=== PATIENT | male | born 1935 | race Caucasian/White ===

== ENCOUNTER 2023-05-13 16:54 | Emergency (ER) | payer MEDICARE, OTHER, SELFPAY ==
--- NOTE | ~2023-05-13 | XR_ITS ---
EXAMINATION: XR wrist LT min 3V DATE: 05/13/2023 18:12 INDICATION: Left wrist injury. Fall. TECHNIQUE: 4 views of left wrist were obtained. COMPARISON: None. FINDINGS: Bone alignment is normal. No fracture. There is moderate osteoarthritis of radioscaphoid juan carlos int, severe osteoarthritis of triscaphe joint, first carpometacarpal joint, and second metacarpophala ngeal joint, and mild osteoarthritis of the other metacarpophalangeal joints. 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 Reviewed, dictated and finalized at location E. LY MEDICINE PHYSICIAN ASSISTANT
--- NOTE | ~2023-05-13 | CT_ITS ---
EXAMINATION: CT brain wo con DATE: 05/13/2023 18:03 INDICATION: Head injury. TECHNIQUE: Computed tomography (CT) of the head was performed without intravenous contrast. The mA wa s adjusted according to patient size. Iterative reconstruction technique was employed. The dose-lengt h product was 681.00 mGy-cm. COMPARISON: None FINDINGS: There is no intracranial hemorrhage, acute infarction, or abnormal intracranial mass lesion . The ventricles are normal in size. The orbits are normal. There is mild mucosal thickening in the p aranasal sinuses. There is complete opacification of left frontal sinus with osteopenia of the surrou nding bone, consistent with chronic sinusitis. The mastoid air cells are normal. IMPRESSION: 1. Normal brain. 2. Chronic sinusitis. Reviewed, dictated and finalized at location E. PLANT MANAGER
--- NOTE | ~2023-05-13 | CT_ITS ---
EXAMINATION: CT facial bones wo con DATE: 05/13/2023 18:03 INDICATION: Face injury. TECHNIQUE: Computed tomography (CT) of the facial bones and maxillofacial region was performed withou t intravenous contrast. Automated exposure control and iterative reconstruction technique were employ ed. The dose-length product was 553.09 mGy-cm. COMPARISON: None. FINDINGS: The orbits are normal. There is rightward deviation of the nasal septum. No fracture. There is mild mucosal thickening in the paranasal sinuses. There is complete opacification of left frontal sinus with osteopenia of the surrounding bone, consistent with chronic sinusitis. 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 IMPRESSION: 1. No fracture. 2. Chronic sinusitis. Reviewed, dictated and finalized at location E. LRY COATER
--- NOTE | ~2023-05-13 | XR_ITS ---
EXAMINATION: XR shoulder LT min 2V DATE: 05/13/2023 18:12 INDICATION: Left shoulder pain. TECHNIQUE: 3 views of left shoulder were obtained. COMPARISON: None. FINDINGS: Bone alignment is normal. No fracture. There is moderate osteoarthritis of glenohumeral salazar nt and severe osteoarthritis of acromioclavicular joint. IMPRESSION: 1. Polyarticular osteoarthritis. Reviewed, dictated and finalized at location E. LY OFFICER
--- NOTE | ~2023-05-13 | XR_ITS ---
EXAMINATION: XR wrist RT min 3V DATE: 05/13/2023 18:12 INDICATION: Right wrist pain. Fall. TECHNIQUE: 4 views of right wrist were obtained. COMPARISON: None. FINDINGS: Bone alignment is normal. No fracture. There is moderate osteoarthritis of radioscaphoid juan carlos int, mild osteoarthritis of lunate-capitate joint, and severe osteoarthritis of triscaphe joint and f irst carpometacarpal joint. There is a loose body in the radiocarpal compartment dorsally. 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 Reviewed, dictated and finalized at location E. MOBILE DEALER
[2023-05-13 17:24] VITALS: BP 168/49; PULSE 86; RESP 16; TEMP 36.4; O2SAT 99
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
[2023-05-13] MEDS: TETANUS,DIPHTHERIA,AC PERTUSSIS ADULT (0.5 ML) BOOSTRIX IM (18:39)
[2023-05-13 19:14] VITALS: BP 152/70; PULSE 84; RESP 18; O2SAT 99
== END 2023-05-13 19:15 | disposition home or self-care (01) ==
PROVIDERS: Emergency Provider Physician Assistant
DX: S01.511A Laceration without foreign body of lip, initial encounter (principal); S00.33XA Contusion of nose, initial encounter; Z23 Encounter for immunization; M19.032 Primary osteoarthritis, left wrist; M19.031 Primary osteoarthritis, right wrist; M19.012 Primary osteoarthritis, left shoulder; J32.9 Chronic sinusitis, unspecified; W10.1XXA Fall (on)(from) sidewalk curb, initial encounter
CPT/HCPCS: 12011; 70450; 70486; 73030; 73110; 90471; 90715; 99284